=== PATIENT | female | born 1950 | race Caucasian/White ===

== ENCOUNTER 2024-10-23 14:36 | Emergency (ER) | payer OTHER ==
[~2024-10-23] VITALS: Ht 167.6 cm; Wt 72.6 kg
[2024-10-23] MEDS ORDERED: Ketorolac Tromethamine 30mg Vial IV ONE (14:45)
[2024-10-23] MEDS ORDERED: Methocarbamol 500 MG Tab PO ONE (14:45)
[2024-10-23] MEDS ORDERED: METO50ER PO (15:21)
[2024-10-23] MEDS ORDERED: LOSA50 PO (15:21)
[2024-10-23] MEDS ORDERED: ASPI81CH PO (15:22)
[2024-10-23] MEDS ORDERED: OMEP20ER PO (15:22)
[2024-10-23 15:50] LABS: BASOPHILS ABSOLUTE AUTO 0.03 K/mm3 (0.00-0.23); BASOPHILS PERCENT AUTO 0 % (0-2); EOSINOPHILS ABSOLUTE AUTO 0.05 K/mm3 (0.00-0.68); EOSINOPHILS PERCENT AUTO 1 % (0-6); Hematocrit 40.7 % (33.0-51.0); Hemoglobin 13.9 g/dL (11.5-16.0); IMMATURE GRAN ABSOLUTE AUTO 0.05 K/mm3 (0.00-0.10); IMMATURE GRAN PERCENT AUTO 1 % (0-1); LYMPHOCYTES ABSOLUTE AUTO 1.57 K/mm3 (0.84-5.20); LYMPHOCYTES PERCENT AUTO 16 % (21-46); MONOCYTES ABSOLUTE AUTO 0.48 K/mm3 (0.16-1.47); MONOCYTES PERCENT AUTO 5 % (4-13); Mean Corpuscular HGB 32.6 pg (26.0-34.0); Mean Corpuscular HGB Conc 34.2 g/dL (31.5-36.5); Mean Corpuscular Volume 96 fL (80-100); Mean Platelet Volume 9.3 fL (9.1-12.4); NEUTROPHILS ABSOLUTE AUTO 7.88 K/mm3 (1.96-9.15); NEUTROPHILS PERCENT AUTO 78 % (41-73); Platelet Count 210 K/mm3 (150-400); RDW Coefficient Variation 13.2 % (11.7-14.2); RDW Standard Deviation 46.9 fL (35.1-46.3); Red Blood Cell Count 4.26 M/mm3 (3.80-5.20); White Blood Cell Count 10.06 K/mm3 (4.00-11.30)
[2024-10-23 16:26] LABS: Albumin, Blood 3.7 g/dL (3.4-5.0); Albumin/Globulin Ratio 1.2 (0.8-1.8); Bun/Creatinine Ratio 24.7 (12.0-20.0); Calcium, Blood 8.7 mg/dL (8.5-10.1); Creatinine, Blood 0.77 mg/dL (0.40-1.00); Globulin, Blood 3.2 g/dL (2.2-4.0); Potassium, Blood 3.7 mmol/L (3.5-5.5); Total Protein, Blood 6.9 g/dL (6.4-8.2)
[2024-10-23] MEDS ORDERED: Morphine Sulfate 4 MG/1 ML Injection IV ONE (16:50)
[2024-10-23] MEDS ORDERED: NS 1,000 ML IV SCH ×2 (16:55→17:45)
[2024-10-23] MEDS ORDERED: FAMO20 PO (17:52)
[2024-10-23] MEDS ORDERED: ONDA4ODT MM (17:52)
[2024-10-23] MEDS ORDERED: Morphine Sulfat15 MG PO (17:52)
[2024-10-23] MEDS ORDERED: Robaxin750 MG PO (17:52)
[2024-10-23] MEDS ORDERED: NARCAN4 M1 (18:27)
== END 2024-10-23 18:28 ==
LOC: ER 14:36
PROVIDERS: Student in an Organized Health Care Education/Training Program
DX: S32.039A Unspecified fracture of third lumbar vertebra, initial encounter for closed fracture (principal); K21.9 Gastro-esophageal reflux disease without esophagitis; I10 Essential (primary) hypertension; M19.09 Primary osteoarthritis, other specified site; V49.9XXA Car occupant (driver) (passenger) injured in unspecified traffic accident, initial encounter; Z79.82 Long term (current) use of aspirin; Z79.899 Other long term (current) drug therapy; Z88.5 Allergy status to narcotic agent
CPT/HCPCS: 72131; 80053; 85025; 96374; 96375; 99285-25; A6590; A9270; J1885; J2270; J7030